=== PATIENT | male | born 1965 | race African-American/Black ===

== ENCOUNTER 2024-12-26 17:05 | Outpatient (CLI) | payer OTHER, SELFPAY | END 2024-12-26 17:06 | disposition home or self-care (01) | LOC: AMB 12-27 10:51 | PROVIDERS: Visit Provider Emergency Medicine Emergency Medical Services | DX: S29.9XXA Unspecified injury of thorax, initial encounter (principal); V49.40XA Driver injured in collision with unspecified motor vehicles in traffic accident, initial encounter; Y92.410 Unspecified street and highway as the place of occurrence of the external cause | CPT/HCPCS: A0998 ==